=== PATIENT | male | born 1950 | race Caucasian/White ===

== ENCOUNTER 2020-10-29 18:16 | Emergency (ER) | payer BC, OTHER ==
[2020-10-29] MEDS ORDERED: Lidocaine 1% with EPINEPHrine 1:100,000 10 ML MDV INJECT ONE (18:37)
[2020-10-29] MEDS ORDERED: Diphtheria,Pertussis(Acell),Tetanus Vaccine 0.5 ML Syringe IM ONE (18:37)
--- NOTE | 2020-10-29 18:43 | EDM.PDOC ---
ED HPI GENERAL MEDICAL PROBLEM - General Chief Complaint: Laceration Stated Complaint: R HAND LAC Time Seen by Provider: 10/29/20 18:31 Source of Information: Reports: Patient, RN Notes Reviewed History Limitations: Reports: No Limitations - History of Present Illness INITIAL COMMENTS - FREE TEXT/NARRATIVE: Patient is a 70-year-old male who presents to the ED for the evaluation of a right hand laceration. Patient notes that a glass fell on the countertop, and while he was reaching for it, and ended up lacerating him between digits 2 and 3, in the web spacing. He notes that this bled almost immediately, and is still bleeding at the time of triage. He is not on any blood thinners. He is not sure of his last Tdap vaccination. He has no neurovascular injury apparent. Patient denies any other sick-like symptoms, fever/chills, cough/shortness of breath, nausea/vomiting/diarrhea. The laceration itself is roughly 2.5 cm, by about a centimeter deep. No glass was visualized within the wound tract on initial exam. 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 Right Finger-Index Pain Score (Numeric/FACES): 2 - Related Data Allergies Allergy/AdvReac Type Severity Reaction Status Date / Time No Known Allergies Allergy Verified 10/29/20 18:31 Home Meds: Home Meds Colesevelam [Welchol] 1,250 mg PO BID 10/29/20 [History] Enalapril [Vasotec] 5 mg PO DAILY 10/29/20 [History] FA/Lycopene/Lut/MV,Ca,Iron,Min [Centrum] 1 tab PO DAILY 10/29/20 [History] Glucosam/Chondr/Collagn/Hyalur [Glucosamine & Chondroitin Cap] 1 tab PO DAILY 10/29/20 [History] Omeprazole Magnesium [Prilosec Otc] 20 mg PO DAILY 10/29/20 [History] hydroCHLOROthiazide [Hydrochlorothiazide] 25 mg PO DAILY 10/29/20 [History] ED ROS GENERAL - Review of Systems Review Of Systems: Comprehensive ROS is negative, except as noted in HPI. ED EXAM, SKIN/RASH Exam: See Below Exam Limited By: No Limitations General Appearance: Alert, WD/WN, No Apparent Distress Respiratory/Chest: No Respiratory Distress, Lungs Clear, Normal Breath Sounds, No Accessory Muscle Use, Chest Non-Tender Cardiovascular: Normal Peripheral Pulses, Regular Rate, Rhythm, No Edema Extremities: Normal Range of Motion, Normal Capillary Refill Neurological: Alert, Oriented, Normal Cognition, No Motor/Sensory Deficits Psychiatric: Normal Affect, Normal Mood Skin: Warm, Dry, Normal Color, No Rash, Wound/Incision (2.5 x 1 cm deep laceration to web spacing between digits 2 & 3 of right hand.) ED SKIN PROCEDURES - Laceration/Wound Repair Right Hand Appearance: Muscle, Linear, Clean Distal NVT: Neuro & Vascular Intact, No Tendon Injury Anesthetic Type: Local Local Anesthesia - Lidocaine (Xylocaine): 1% with EPI Local Anesthetic Volume: 3cc Skin Prep: Chlorhexidine (Hibiciens), Saline Exploration/Debridement/Repair: Wound Explored, In a Bloodless Field, Explored to Base, No Foreign Material Found Closed with: Sutures Lac/Wound length In cm: 2.5 Suture Size: 4-0 # of Sutures: 5 Suture Type: Prolene, Interrupted, Simple Sterile Dressing Applied: Nurse Tetanus Status Addressed: Yes Complications: No Course - Vital Signs Last Recorded V/S: Last Vital Signs Temp Pulse 71 10/29/20 18:42 Resp 20 10/29/20 18:42 BP 141/92 H 10/29/20 18:42 Pulse Ox 98 10/29/20 18:42 - Orders/Labs/Meds Orders: Active Orders 24 hr Category Date Time Status Vaccines to be Administered [RC] PER UNIT ROUTINE Care 10/29/20 18:37 Ordered Meds: Medications Discontinued Medications Generic Name Dose Route Start Last Admin Trade Name Stevenq PRN Reason Stop Dose Admin Diphtheria/Tetanus/Acell Pertussis 0.5 ml 10/29/20 18:37 10/29/20 19:17 Boostrix IM 10/29/20 18:38 0.5 ml .ONCE ONE Administration Lidocaine/Epinephrine 10 ml 10/29/20 18:37 10/29/20 19:17 Xylocaine 1% With Epinephrine 1:100,000 INJECT 10/29/20 18:38 10 ml ONETIME ONE Administration Departure - Departure Time of Disposition: 18:42 Disposition: Home, Self-Care 01 Condition: Good Clinical Impression: Hand laceration Qualifiers: Encounter type: initial encounter Foreign body presence: without foreign body Laterality: right Qualified Code(s): S61.411A - Laceration without foreign body of right hand, initial encounter - Discharge Information *PRESCRIPTION DRUG MONITORING PROGRAM REVIEWED*: No *COPY OF PRESCRIPTION DRUG MONITORING REPORT IN PATIENT LANA: No Instructions: Sutures, Celina, or Adhesive Wound Closure, [id number] Referrals: Srinath Castro Jr, MD [Primary Care Provider] - Forms: ED Department Discharge Additional Instructions: You have been evaluated in the ED for your laceration. Sutures will need to stay in for 7-10 days. You may return to the ED or any clinic for removal. Please keep this area clean and dry, you may cleanse with regular soap and water. No vigorous scrubbing. Please try to avoid submerging the affected area in water for prolonged periods of time until the sutures are removed. Watch out for signs of infection like increased redness, swelling, pain at the laceration site, or if you should develop any fevers or chills. Please return to ED if your symptoms change or worsen. Sepsis Event Note (ED) - Focused Exam Vital Signs: Vital Signs Pulse Resp BP Pulse Ox 10/29/20 18:42 71 20 141/92 H 98 - My Orders Last 24 Hours: My Active Orders 10/29/20 18:37 Vaccines to be Administered [RC] PER UNIT ROUTINE - Assessment/Plan Last 24 Hours: My Active Orders 10/29/20 18:37 Vaccines to be Administered [RC] PER UNIT ROUTINE
== END 2020-10-29 19:50 | disposition home or self-care (01) ==
LOC: JD.ED 18:16
DX: S61.411A Laceration without foreign body of right hand, initial encounter (principal); Z23 Encounter for immunization; W25.XXXA Contact with sharp glass, initial encounter
CPT/HCPCS: 12001; 90471; 90715; 99282-25

== ENCOUNTER 2021-12-21 17:13 | Emergency (ER) | payer OTHER ==
[2021-12-21] MEDS ORDERED: Sodium Chloride 0.9% 10 ML Syringe FLUSH PRN (17:34)
[2021-12-21] MEDS ORDERED: Ketorolac 15 MG/ML SDV IVPUSH ONE (17:35)
[2021-12-21] MEDS ORDERED: Sodium Chloride 0.9% 1,000 ML IV SCH (17:45)
== END 2021-12-21 19:36 | disposition home or self-care (01) ==
LOC: JD.ED 17:13
DX: N13.2 Hydronephrosis with renal and ureteral calculous obstruction (principal); E78.00 Pure hypercholesterolemia, unspecified; I10 Essential (primary) hypertension; Z79.899 Other long term (current) drug therapy
CPT/HCPCS: 36415; 74176; 80053; 81001; 83690; 85025; 96374; 99284; J1885; J7030